=== PATIENT | male | born 2000 | race Caucasian/White ===

== ENCOUNTER 2023-03-24 20:08 | Emergency (ER) | payer OTHER, SELFPAY ==
--- NOTE | ~2023-03-24 | XR_ITS ---
EXAMINATION: XR finger 5th RT min 2V DATE: 03/24/2023 20:32 INDICATION: Right hand fifth digit injury. TECHNIQUE: 3 views of right hand fifth digit were obtained. COMPARISON: None. FINDINGS: There is dorsal dislocation of fifth middle phalanx with respect to the proximal phalanx. N o fracture. Other joint spaces are normal. IMPRESSION: 1. Dislocation of fifth proximal interphalangeal joint. Reviewed, dictated and finalized at location E.
[2023-03-24 20:10] VITALS: BP 129/83; PULSE 109; RESP 18; TEMP 37.1; O2SAT 100
--- NOTE | 2023-03-24 20:19 | ED.UPPEXIN ---
HPI - Extremity Injury (Upper) General Chief Complaint: Extremity Injury, Upper Stated Complaint: hand injury Time Seen by Provider: 03/24/23 20:17 History of Present Illness HPI narrative: Patient is a 22-year-old male presenting with a right pinky injury. States that it was struck with a basketball. States that it is deformed and he was unable to move it. States it is painful but bearable. No numbness or weakness. Denies further complaints. Related Data Allergies Allergy/AdvReac Type Severity Reaction Status Date / Time No Known Allergies Allergy Verified 03/24/23 20:12 Review of Systems Review of Systems: All systems reviewed & are unremarkable except as noted in HPI and below Exam Narrative: GENERAL: Well-appearing and in no acute distress. HEAD: Normocephalic, atraumatic. EYES: PERRLA and EOMI. ENT: Nares clear, no rhinorrhea or epistaxis. NECK: Supple. CHEST: No respiratory distress. HEART: Regular rate and rhythm. Normal peripheral pulses. EXTREMITIES: Right fifth digit with obvious deformity, limited ROM 2/2 pain and deformity SKIN: Warm, dry, no rash. NEURO: Alert and oriented x3. PSYCH: Normal mood and affect. Course Vital Signs Vital signs: Vital Signs Temperature 98.8 F 03/24/23 20:10 Pulse Rate 109 H 03/24/23 20:10 Respiratory Rate 18 03/24/23 20:10 Blood Pressure 129/83 03/24/23 20:10 Pulse Oximetry 100 03/24/23 20:10 Oxygen Delivery Room Air 03/24/23 20:10 Temperature 98.8 F 03/24/23 20:10 Pulse Rate 109 H 03/24/23 20:10 Respiratory Rate 18 03/24/23 20:10 Blood Pressure 129/83 03/24/23 20:10 Pulse Oximetry 100 03/24/23 20:10 Oxygen Delivery Room Air 03/24/23 20:10 Procedures Orthopedic Joint Reduction Joint #1: Orthopedic Joint Reduction Date: 03/24/23 Orthopedic Joint Reduction Time: 21:00 Side: right Joint Reduction Location: finger Analgesia: none Pre-Procedure Neuro Vascular Exam: normal Technique used: direct manipulation Post-reduction neuro exam: intact Post-reduction vascular: intact Post Reduction X-Ray Obtained: No Splint Applied: Yes Patient Tolerated Procedure: well MDM - Extremity Injury (Upper) MDM Narrative Medical decision making narrative: 22-year-old male presenting with right pinky injury. Vitals are stable. Exam remarkable for the above. X-ray confirms dorsal dislocation of PIP joint of right fifth digit. It was reduced at bedside without complication. Tolerated well. Placed in a splint and advised following up with hand surgery. Remains neurovascularly intact. Appropriate return precautions given. Discharged in stable condition. Differential Diagnosis Differential diagnosis: Likely finger sprain and dislocation of finger Imaging Data Radiologist's impression: ITS Impressions Finger X-Ray 03/24/23 20:33 IMPRESSION: 1. Dislocation of fifth proximal interphalangeal joint. Critical Care Time Critical Care Time Critical Care Time: No Discharge Plan Discharge Clinical Impression: Dislocation of finger Patient Disposition: Home, Self-Care Condition: Stable Instructions: Finger Dislocation (ED) Additional Instructions: X-rays today show that you dislocated the middle joint of your right pinky finger. It has been reduced at bedside without complication. Please use Tylenol and ibuprofen for pain control. Please keep the splint on until you are able to follow-up with hand surgery at the number below. If your pain worsens, you develop numbness or weakness, or other concerning symptoms arise, please return to the ER. Follow-up/Referrals: Dann Cheng MD [Physician] -
[2023-03-24] MEDS: ACETAMINOPHEN 500 MG TABLET 1000 MG PO (21:00)
[2023-03-24] MEDS: IBUPROFEN 400 MG TABLET 800 MG PO (21:01)
== END 2023-03-24 21:25 | disposition home or self-care (01) ==
PROVIDERS: Emergency Provider Emergency Medicine
DX: S63.286A Dislocation of proximal interphalangeal joint of right little finger, initial encounter (principal); W21.05XA Struck by basketball, initial encounter; Y93.67 Activity, basketball
CPT/HCPCS: 26770; 73140; 99285; A9270